=== PATIENT | female | born 1970 ===

== ENCOUNTER 2018-05-26 15:08 | Outpatient (CLI) | payer OTHER | END 2018-05-26 15:09 | disposition home or self-care (01) | LOC: C.USIC 15:08 | DX: N83.209 Unspecified ovarian cyst, unspecified side (principal) ==

== ENCOUNTER 2018-07-07 15:26 | Outpatient (CLI) | payer SELFPAY | END 2018-07-07 15:27 | disposition home or self-care (01) | LOC: C.MAMMO 15:26 | DX: Z12.31 Encounter for screening mammogram for malignant neoplasm of breast (principal) ==

== ENCOUNTER 2018-07-07 15:30 | Outpatient (CLI) | payer OTHER | END 2018-07-07 15:31 | disposition home or self-care (01) | LOC: C.RADIC 15:30 | DX: J20.9 Acute bronchitis, unspecified (principal) ==